=== PATIENT | female | born 2000 | race Caucasian/White ===

== ENCOUNTER 2025-02-16 08:17 | Inpatient (IN) ==
[2025-02-16] MEDS ORDERED: OXYTOCIN 30 UNITS/NSS 30 UNITS/500 ML BAG IV PRN (08:50)
[2025-02-16] MEDS ORDERED: LIDOCAINE 1% LOCAL 20 ML VIAL INFIL PRN (08:50)
--- NOTE | 2025-02-16 08:59 | History & Physical Report ---
Date of Service February 16, 2025 Assessment & Plan (1) Post term over 40 weeks: Plan: Cytotec 50 mcg orally for cervical ripening History of Present Illness Chief Complaint: ruptured membranes Primary Care Provider: Raj Blount, 24 F P0000 at 40.1 weeks term with SROM clear fluid at 0430 this AM. onset of mild contractions noted by patient. GBS is negative. Allergies Allergy/AdvReac Type Severity Reaction Status Date / Time No Known Allergies Allergy Unknown Verified 06/26/23 13:58 Home Medications Medication Instructions Recorded Confirmed Type multivitamin 1 tab PO DAILY 11/10/22 06/26/23 History escitalopram oxalate 5 mg tablet 5 mg PO DAILY #90 tabs 06/26/23 06/26/23 Rx albuterol sulfate 90 mcg/actuation 2 puff inhalation QID PRN 03/08/24 03/08/24 Rx aerosol inhaler (Ventolin HFA) shortness of breath or wheezing #6.7 grams azithromycin 250 mg tablet See Rx Instructions PO .COMPLEX #6 03/08/24 03/08/24 Rx tabs Patient History Medical History Migraine with aura Leg pain, left Family History Other Thyroid disease Denies family history of Ovarian cancer Prostate cancer Myocardial infarction Breast cancer Colorectal cancer Social History Smoking Status: Former smoker Tobacco Type: E-cigarettes / Vaping Age Started Using Tobacco: 17; Second Hand Exposure: Yes; Do You Dip or Chew Tobacco: No; Tobacco Cessation Education Requested by Patient: No Hx Alcohol Use: No Hx Substance Use: No Preferred Language: Uzbek Communication Ability: Effective Sales And Marketing Executive Required: No Beliefs That Will Affect Care: None marital status: Single Current Living Situation: Spouse Current Living Situation Comment: - Samir Stoddard current occupational status: employed 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 How many Children do You have: 0 Other Information That Helps Us Care for You: No Feels Safe at Home: Yes Safety Concerns: Feels Safe At This Time Childhood Exposure to Second-Hand Smoke: Yes Diet: regular caffeine: Yes Dental Care, Regularly: No Physical Activity Frequency: Daily Seatbelt Use: always Sunscreen Use: No Assistive Devices: None OB History 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 History neg Review of Systems All systems reviewed & are unremarkable except as noted in HPI & below Physical Exam Constitutional: WD/WN, vitals as above Eyes: PERRL, conjunctivae normal, anicteric sclerae Respiratory: normal respiratory effort, lungs clear to auscultation Cardiovascular: RRR, no murmur, no edema Gastrointestinal (Abdomen): Inspection/Auscultation: abdomen normal to inspection Musculoskeletal: Extremities: extremities normal to inspection Skin: no rashes, warm and dry Neurologic: patellar DTR's 2+ bilat, sensation intact Psychiatric: A+Ox3, euthymic affect Genitourinary: Manual OB Exam: + cervical dilation fingertip, + cervical effacement 50%, + station high and + amniotic fluid clear OB Exam Monitor Tracing: + external FHT monitor used, + external uterine monitor used and + category I Results & Data Vital Signs (Past 12 Hours) Vital Signs Temp Pulse Resp BP 02/16/25 08:45 96 H 129/87 02/16/25 08:38 36.8 C 96 H 16 129/87 Code Status & VTE Plan VTE Prophylaxis Plan VTE Prophylaxis will be ordered: No Monitoring External Monitor Cat 1
[2025-02-16] MEDS: miSOPROStoL 50 MCG TAB PO ONE (09:12)
[2025-02-16 09:19] LABS: Hematocrit (blood only) 34.4 % (37.0-47.0); Hemoglobin 11.5 g/dl (12.0-16.0); Mean Corpuscular Hemoglobin 29.2 pg (25.0-34.0); Mean Corpuscular Volume 87.3 fL (80.0-100.0); Platelet Count 201 K/uL (130-400); RDW Standard Deviation 42.2 fL (36.4-46.3); Red Blood Count 3.94 M/uL (4.20-5.40); White Blood Count 12.95 K/ul (4.8-10.8)
[2025-02-16] MEDS: LACTATED RINGER'S 1,000 ML IV PRN (12:56)
[2025-02-16] MEDS: BUTORPHANOL TARTRATE 1 MG/ML VIAL IV ONE ×2 (13:20→14:18)
[2025-02-16] MEDS ORDERED: NALBUPHINE HCL INJ 10 MG/ML AMP IV PRN (14:37)
[2025-02-16] MEDS ORDERED: diphenhydrAMINE 50 MG/ML VIAL IV PRN (14:37)
[2025-02-16] MEDS ORDERED: NALOXONE HCL 1 MG in SODIUM CHLORIDE 0.9% 1,000 ML IV PRN (14:37)
[2025-02-16] MEDS ORDERED: SODIUM CHLORIDE 0.9% PF INJ 10 ML VIAL EPI PRN (14:37)
[2025-02-16] MEDS ORDERED: NALOXONE HCL 0.4 MG/1 ML VIAL/CARP IV PRN (14:37)
[2025-02-16] MEDS ORDERED: ROPIVACAINE 0.5% PF 5 MG/ML 20 ML VIAL EPI PRN (14:37)
[2025-02-16] MEDS ORDERED: LIDOCAINE 2% MPF LOCAL 5 ML VIAL EPI PRN (14:37)
--- NOTE | 2025-02-16 14:37 | Anesthesiology Consultation ---
Date of Service February 16, 2025 Assessment & Plan Chart Review Chart Review: Acceptable Risk for Labor Epidural Consults Requested none History Height/Weight Height: 5 ft 1 in Weight: 59.874 kg Allergies Allergy/AdvReac Type Severity Reaction Status Date / Time No Known Allergies Allergy Unknown Verified 06/26/23 13:58 Medications Home Medications Medication Instructions Recorded Confirmed Last Taken multivitamin 1 tab PO DAILY 11/10/22 06/26/23 Unknown Active Medications Generic Name Dose Route Start Last Admin Trade Name Freq PRN Reason Stop Dose Admin Lactated Ringer's 1,000 mls @ 125 mls/hr 02/16/25 08:50 02/16/25 14:09 Lr IV 02/18/25 08:49 999 mls/hr .Q8H PRN Infusion L&D Protocol Protocol Past Family History Family History Other Thyroid disease Denies family history of Ovarian cancer Prostate cancer Myocardial infarction Breast cancer Colorectal cancer Social History Smoking Status: Former smoker Do You Dip or Chew Tobacco: No Hx Alcohol Use: No Hx Substance Use: No Physical Exam Vital Signs Last Vital Signs Temp 36.7 C 02/16/25 13:06 Pulse 87 02/16/25 14:35 Resp 16 02/16/25 11:16 BP 120/63 02/16/25 14:33 Pulse Ox 97 02/16/25 14:35 Testing Laboratory Results 02/16/25 09:03
[2025-02-16] MEDS: LIDOCAINE 2%/EPINEPHRINE 1:200,000 20 ML PF EPI STA (14:59)
[2025-02-16] MEDS: BUPIVACAINE 0.25% PF 30 ML VIAL ONE (14:59)
[2025-02-16] MEDS: SODIUM CHLORIDE 0.9% PF INJ 10 ML VIAL ONE (15:00)
[2025-02-16] MEDS: fentANYL 2 MCG/ML BUPIVacaine 0.125%-NSS 100ML BAG ONE (15:13)
--- NOTE | 2025-02-16 17:13 | Labor Progress Brief Note ---
Date of Service February 16, 2025 Assessment & Plan Admission and Anticipated Discharge Date Admission Date: February 16, 2025 Physical Exam Genitourinary: Manual OB Exam: + cervical dilation 2 cm, + cervical effacement 90% and + station -2 OB Exam Monitor Tracing: + external FHT monitor used, + external uterine monitor used, + category I and + normal FHT variability attempted to rupture forebag with Amni-hook but no fluid obtained after exam Results & Data Vital Signs (Past 12 Hours) Vital Signs Temp Pulse Resp BP Pulse Ox 02/16/25 17:10 91 H 98 02/16/25 17:05 98 H 99 02/16/25 17:00 116 H 16 99 02/16/25 16:55 108 H 99 02/16/25 16:50 90 97 02/16/25 16:48 94 H 125/73 02/16/25 16:45 109 H 98 02/16/25 16:40 112 H 99 02/16/25 16:35 104 H 98 02/16/25 16:33 99 H 139/75 02/16/25 16:30 128 H 16 99 02/16/25 16:25 86 96 02/16/25 16:20 90 95 02/16/25 16:18 113 H 115/58 L 02/16/25 16:15 92 H 95 02/16/25 16:10 89 95 02/16/25 16:05 90 94 02/16/25 16:03 90 122/66 02/16/25 16:00 92 H 95 02/16/25 15:55 83 95 02/16/25 15:50 90 95 02/16/25 15:48 108 H 120/57 L 02/16/25 15:45 89 96 02/16/25 15:40 83 96 02/16/25 15:35 87 96 02/16/25 15:30 86 16 96 02/16/25 15:28 89 115/56 L 02/16/25 15:25 79 96 02/16/25 15:23 90 124/60 02/16/25 15:21 85 18 131/66 02/16/25 15:20 91 H 96 02/16/25 15:19 83 129/59 L 02/16/25 15:18 16 02/16/25 15:18 16 02/16/25 15:17 77 133/60 02/16/25 15:16 18 02/16/25 15:16 18 02/16/25 15:15 97 02/16/25 15:15 86 02/16/25 15:15 80 119/56 L 02/16/25 15:12 36.6 C 82 20 131/72 02/16/25 15:10 98 H 98 02/16/25 15:05 110 H 98 02/16/25 15:03 111 H 134/83 02/16/25 15:00 132 H 97 02/16/25 14:55 124 H 98 02/16/25 14:50 104 H 96 02/16/25 14:48 96 H 131/58 L 02/16/25 14:45 87 96 02/16/25 14:40 91 H 97 02/16/25 14:35 87 97 02/16/25 14:33 94 H 120/63 02/16/25 14:30 114 H 99 02/16/25 14:25 88 97 02/16/25 14:21 77 91 02/16/25 14:20 89 96 02/16/25 13:10 91 H 119/58 L 02/16/25 13:06 36.7 C 02/16/25 11:16 36.6 C 81 16 129/79 02/16/25 09:14 99 H 122/79 02/16/25 08:45 96 H 129/87 02/16/25 08:40 36.8 C 02/16/25 08:38 36.8 C 96 H 16 129/87
[2025-02-16] MEDS: OXYTOCIN 30 UNITS/NSS 30 UNITS/500 ML BAG IV PRN (19:32)
[2025-02-16] MEDS: CALCIUM CARBONATE 500 MG CHEWABLE TAB PO PRN (20:31)
[2025-02-16] MEDS: fentANYL 2 MCG/ML BUPIVacaine 0.125%-NSS 100ML BAG EPI PRN (23:18)
[2025-02-17] MEDS: ONDANSETRON INJ 2 MG/ML 2 ML VIAL IV PRN (02:30)
[2025-02-17] MEDS: BUPIVACAINE 0.25% PF 30 ML VIAL EPI PRN (07:30)
[2025-02-17] MEDS: BUPIVACAINE 0.25% PF 30 ML VIAL EPI STA (09:48)
[2025-02-17] MEDS: LIDOCAINE 2%/EPINEPHRINE 1:200,000 20 ML PF ONE (09:48)
[2025-02-17] MEDS: SODIUM CHLORIDE 0.9% PF INJ 10 ML VIAL EPI STA (09:49)
--- NOTE | 2025-02-17 10:45 | Labor Progress Brief Note ---
Date of Service February 17, 2025 Assessment & Plan Admission and Anticipated Discharge Date Admission Date: February 16, 2025 Physical Exam Genitourinary: Manual OB Exam: + cervical dilation 10 cm, + cervical effacement 100% and + station 0 OB Exam Monitor Tracing: + external FHT monitor used, + external uterine monitor used, + category I and + normal FHT variability Results & Data Vital Signs (Past 12 Hours) Vital Signs Temp Pulse Resp BP Pulse Ox 02/17/25 10:40 117 H 96 02/17/25 10:35 121 H 99 02/17/25 10:33 112 H 107/56 L 02/17/25 10:30 100 H 95 02/17/25 10:25 94 H 95 02/17/25 10:20 110 H 96 02/17/25 10:18 101 H 104/54 L 02/17/25 10:15 100 H 94 02/17/25 10:10 99 H 95 02/17/25 10:05 97 H 95 02/17/25 10:04 104 H 100/55 L 02/17/25 10:00 90 94 02/17/25 09:55 103 H 97 02/17/25 09:50 90 95 02/17/25 09:48 91 H 108/54 L 02/17/25 09:45 97 H 95 02/17/25 09:40 100 H 95 02/17/25 09:35 119 H 97 02/17/25 09:34 98 H 103/51 L 02/17/25 09:30 103 H 97 02/17/25 09:25 113 H 96 02/17/25 09:20 92 H 96 02/17/25 09:18 93 H 97/55 L 02/17/25 09:15 102 H 98 02/17/25 09:10 100 H 97 02/17/25 09:05 101 H 95 02/17/25 09:03 99 H 107/53 L 02/17/25 09:00 102 H 96 02/17/25 08:55 19 02/17/25 08:55 37.1 C 102 H 19 97 02/17/25 08:50 97 02/17/25 08:50 106 H 02/17/25 08:50 113 H 117/66 02/17/25 08:45 106 H 97 02/17/25 08:40 106 H 98 02/17/25 08:35 99 H 96 02/17/25 08:33 114 H 129/64 02/17/25 08:30 94 H 96 02/17/25 08:25 104 H 96 02/17/25 08:20 106 H 97 02/17/25 08:18 96 H 125/65 02/17/25 08:15 107 H 98 02/17/25 08:10 107 H 97 02/17/25 08:05 107 H 97 02/17/25 08:04 103 H 112/61 02/17/25 08:00 112 H 97 02/17/25 07:55 113 H 96 02/17/25 07:50 112 H 98 02/17/25 07:48 111 H 126/66 02/17/25 07:45 108 H 98 02/17/25 07:40 111 H 98 02/17/25 07:35 124 H 97 02/17/25 07:30 124 H 98 02/17/25 07:25 111 H 96 02/17/25 07:20 115 H 98 02/17/25 07:18 36.8 C 129 H 22 132/56 L 02/17/25 07:15 105 H 97 02/17/25 07:10 107 H 95 02/17/25 07:05 120 H 96 02/17/25 07:03 105 H 117/67 02/17/25 07:00 116 H 97 02/17/25 06:55 105 H 94 02/17/25 06:50 126 H 98 02/17/25 06:48 121 H 124/86 02/17/25 06:45 135 H 96 02/17/25 06:40 122 H 97 02/17/25 06:35 139 H 98 02/17/25 06:34 136 H 128/88 02/17/25 06:30 115 H 93 02/17/25 06:25 128 H 99 02/17/25 06:20 98 H 92 02/17/25 06:17 107 H 120/64 02/17/25 06:15 123 H 96 02/17/25 06:10 95 H 95 02/17/25 06:05 111 H 97 02/17/25 06:03 98 H 126/66 02/17/25 06:00 96 H 94 02/17/25 05:55 108 H 95 02/17/25 05:50 121 H 98 02/17/25 05:48 129 H 137/73 02/17/25 05:45 126 H 98 02/17/25 05:40 101 H 95 02/17/25 05:35 97 H 95 02/17/25 05:30 88 93 02/17/25 05:25 120 H 98 02/17/25 05:20 123 H 96 02/17/25 05:18 110 H 119/69 02/17/25 05:15 37.2 C 111 H 16 94 02/17/25 05:10 122 H 97 02/17/25 05:05 105 H 94 02/17/25 05:03 107 H 120/69 02/17/25 05:00 101 H 94 02/17/25 04:55 106 H 94 02/17/25 04:50 107 H 94 02/17/25 04:48 121 H 119/75 02/17/25 04:45 123 H 95 02/17/25 04:40 108 H 94 02/17/25 04:35 116 H 93 02/17/25 04:30 106 H 95 02/17/25 04:25 113 H 95 02/17/25 04:20 113 H 94 02/17/25 04:18 114 H 102/57 L 02/17/25 04:15 111 H 94 02/17/25 04:10 110 H 94 02/17/25 04:05 111 H 94 02/17/25 04:02 114 H 114/58 L 02/17/25 04:00 124 H 96 02/17/25 03:55 118 H 94 02/17/25 03:50 126 H 96 02/17/25 03:47 115 H 109/58 L 02/17/25 03:45 125 H 95 02/17/25 03:40 123 H 96 02/17/25 03:35 138 H 95 02/17/25 03:33 130 H 117/56 L 02/17/25 03:30 121 H 95 02/17/25 03:25 128 H 95 02/17/25 03:20 132 H 95 02/17/25 03:18 121 H 110/58 L 02/17/25 03:15 121 H 96 02/17/25 03:10 124 H 97 02/17/25 03:05 134 H 95 02/17/25 03:02 129 H 101/57 L 02/17/25 03:00 134 H 94 02/17/25 02:55 129 H 94 02/17/25 02:50 125 H 94 02/17/25 02:47 117 H 97/56 L 02/17/25 02:45 112 H 95 02/17/25 02:40 121 H 95 02/17/25 02:35 117 H 94 02/17/25 02:33 37.5 C 120 H 15 109/53 L 02/17/25 02:30 118 H 97 02/17/25 02:25 126 H 95 02/17/25 02:20 134 H 95 02/17/25 02:19 150 H 119/58 L 02/17/25 02:15 135 H 96 02/17/25 02:10 116 H 95 02/17/25 02:05 107 H 96 02/17/25 02:02 114 H 107/60 02/17/25 02:00 110 H 96 02/17/25 01:55 117 H 97 02/17/25 01:50 129 H 98 02/17/25 01:47 109 H 105/58 L 02/17/25 01:45 109 H 96 02/17/25 01:40 109 H 98 02/17/25 01:35 109 H 96 02/17/25 01:33 112 H 102/57 L 02/17/25 01:30 109 H 96 02/17/25 01:25 146 H 98 02/17/25 01:20 103 H 95 02/17/25 01:19 100 H 123/70 02/17/25 01:15 103 H 96 02/17/25 01:10 105 H 96 02/17/25 01:05 115 H 97 02/17/25 01:04 18 02/17/25 01:04 36.7 C 18 02/17/25 01:02 117 H 117/65 02/17/25 01:00 119 H 97 02/17/25 00:55 124 H 99 02/17/25 00:50 120 H 97 02/17/25 00:47 120 H 113/64 02/17/25 00:45 119 H 98 02/17/25 00:40 118 H 99 02/17/25 00:35 128 H 99 02/17/25 00:32 116 H 121/71 07/11/25 00:30 125 H 98 02/17/25 00:25 118 H 99 02/17/25 00:20 127 H 99 02/17/25 00:18 136 H 120/67 02/17/25 00:15 129 H 100 02/17/25 00:10 123 H 99 02/17/25 00:05 113 H 99 02/17/25 00:02 121 H 109/62 02/17/25 00:00 124 H 99 02/16/25 23:55 129 H 98 02/16/25 23:50 122 H 97 02/16/25 23:49 115 H 114/67 02/16/25 23:45 115 H 98 02/16/25 23:40 117 H 97 02/16/25 23:35 112 H 99 02/16/25 23:32 125 H 126/78 02/16/25 23:30 114 H 98 02/16/25 23:25 122 H 98 02/16/25 23:20 125 H 97 02/16/25 23:18 133 H 130/69 02/16/25 23:15 147 H 96 02/16/25 23:10 108 H 95 02/16/25 23:05 110 H 96 02/16/25 23:03 116 H 131/70 02/16/25 23:00 108 H 95 02/16/25 22:55 110 H 97 02/16/25 22:50 109 H 96 02/16/25 22:48 112 H 123/70 02/16/25 22:45 105 H 96
[2025-02-17] MEDS ORDERED: ACETAMINOPHEN 325 MG TAB PO PRN (14:04)
[2025-02-17] MEDS ORDERED: HYDROCORTISONE ACETATE 25 MG SUPP PR PRN (14:04)
[2025-02-17] MEDS ORDERED: OXYTOCIN 30 UNITS/NSS 30 UNITS/500 ML BAG IV PRN (14:04)
[2025-02-17] MEDS ORDERED: DIPHTHER/TETAN/PERTUS Vaccine (Tdap, Adol/Adult) 0.5mL IM ONE (14:04)
--- NOTE | 2025-02-17 14:07 | Delivery Summary ---
Vaginal Delivery Summary Date of Service February 17, 2025 Vaginal Delivery Summary live male LINDA with meconium noted at delivery of head and sucked out. Cord clamped and cut and baby handed to clinical study manager present at [facility]. Apgars pending. Loop of cord obtained for cord gases. Cord blood obtained followed by spontaneous delivery of intact placenta. Placenta sent to pathology for evaluation. No tears. QBL 75 ml. Final sponge and instrument count are correct. Mom stable and baby to nursery for evaluation.
[2025-02-17] MEDS: ACETAMINOPHEN 325 MG TAB PO PRN (14:13)
[2025-02-17 14:37] LABS: Base Excess Cord Venous Blood -7.9 mEq/L (-7.7-1.9); Cord Venous Blood PO2 < 20 mmHg (14.1-43.3); O2 Saturation Cord Venous Bld < 60.0 % (<68)
[2025-02-17] MEDS: IBUPROFEN 600 MG TAB PO PRN (15:08)
[2025-02-17] MEDS: BENZOCAINE 20% SPRY 85 APPLN/85 GM CAN EXT PRN (15:09)
--- NOTE | 2025-02-17 19:53 | Anesthesia Procedure Note ---
Date of Service February 17, 2025 Anesthesia Post Epidural Note Vital Signs Vital Signs: Temp Pulse Resp BP Pulse Ox O2 Del Method 36.9 C 86 16 115/73 95 Room Air 02/17/25 19:02 02/17/25 19:02 02/17/25 19:02 02/17/25 19:02 02/17/25 19:02 02/17/25 19:02 Pain Intensity Bilateral Abdomen: Pain Intensity: 2 Perineal: Pain Intensity: 1 Notes Mental Status: alert / awake / arousable Nausea / Vomiting: adequately controlled Pain: adequately controlled Airway Patency, RR, SpO2: stable & adequate BP & HR: stable & adequate Hydration State: stable & adequate Neuraxial Anesthesia: was administered and sensory block is resolving Anesthetic Complications: no major complications apparent and Pt Satisfied with anesthetic care Epidural: Removed without complications and With tip intact
[2025-02-17] MEDS: DOCUSATE SODIUM 100 MG CAP PO SCH (20:58)
[2025-02-18 06:39] LABS: Hematocrit (blood only) 29.1 % (37.0-47.0); Hemoglobin 9.5 g/dl (12.0-16.0); Mean Corpuscular Hemoglobin 29.4 pg (25.0-34.0); Mean Corpuscular Volume 90.1 fL (80.0-100.0); Platelet Count 177 K/uL (130-400); RDW Standard Deviation 45.4 fL (36.4-46.3); Red Blood Count 3.23 M/uL (4.20-5.40); White Blood Count 16.41 K/ul (4.8-10.8)
[2025-02-18] MEDS: FERROUS SULFATE 325 MG TAB PO SCH (08:41)
[2025-02-18] MEDS: PRENATAL VITAMIN 1 TAB PO SCH (08:41)
[2025-02-18] MEDS: MULTIVITAMIN TAB PO SCH (08:42)
--- NOTE | 2025-02-18 09:24 | Obstetrical Progress Note ---
Date of Service February 18, 2025 Assessment & Plan Admission and Anticipated Discharge Date Admission Date: February 16, 2025 Subjective Patient is seen and examined. She feels well, no complaints. Ambulating without dizziness Voiding without difficulty Tolerating regular diet with out N&V Bleeding is minimal No fever/ chills/ CP/ SOB/ N&V/ Leg pain Breast feeding without problems Vital Signs Temp Pulse Resp BP Pulse Ox O2 Del Method 02/18/25 07: 36.9 C 98 H 18 121/82 98 Room Air 02/18/25 03:34 36.6 C 85 16 121/81 97 Room Air 02/17/25 22:44 36.7 C 89 16 131/80 97 Room Air Lab Results 02/16/25 02/17/25 02/18/25 Range/Units 09:03 13:32 06:16 WBC 12.95 H 16.41 H (4.8-10.8) K/ul RBC 3.94 L 3.23 L (4.20-5.40) M/uL Hgb 11.5 L 9.5 L (12.0-16.0) g/dl Hct 34.4 L 29.1 L (37.0-47.0) % MCV 87.3 90.1 (80.0-100.0) fL MCH 29.2 29.4 (25.0-34.0) pg MCHC 33.4 32.6 (32.0-36.0) g/dL RDW Std Deviation 42.2 45.4 (36.4-46.3) fL RDW Coeff of Eliana 13.4 13.8 (11.5-14.5) % Plt Count 201 177 (130-400) K/uL MPV 10.9 10.8 (9.4-12.4) fL Cord VBG pH 7.26 (7.20-7.44) Cord VBG pCO2 42 (30.4-57.2) mmHg Cord VBG pO2 < 20 (14.1-43.3) mmHg Cord VBG HCO3 19 (18.4-26.8) mmol/L Cord VBG Base Excess -7.9 L (-7.7-1.9) mEq/L Cord VBG O2 Sat < 60.0 (<68) % Blood Gas Comments CALIXTO Treponema pallidum Ab Negative (Negative) Blood Type B Negative Antibody Screen NEGATIVE Screen Negative (Negative) PE: General: Alert, orientedx3, NAD Abd: soft, NT, fundus firm, below Umbilicus Perineum intact, Lochia rubra minimal Ext; NT, no edema AP: 24 yo s/p , ppd# 1 VSS Afebrile doing well Continue routine care All questions were answered D/C home tomorrow Results & Data Vital Signs (Past 12 Hours) Vital Signs Temp Pulse Resp BP Pulse Ox O2 Del Method 02/18/25 07:25 36.9 C 98 H 18 121/82 98 Room Air 02/18/25 03:34 36.6 C 85 16 121/81 97 Room Air 02/17/25 22:44 36.7 C 89 16 131/80 97 Room Air
[2025-02-18 12:35] VITALS: RESP 16
[2025-02-19 06:42] LABS: Hematocrit (blood only) 28.7 % (37.0-47.0); Hemoglobin 9.2 g/dl (12.0-16.0); Immature Granulocytes # (auto) 0.10 K/uL (0.01-0.20); Immature Granulocytes % (auto) 0.9 %; Mean Corpuscular Hemoglobin 29.1 pg (25.0-34.0); Mean Corpuscular Volume 90.8 fL (80.0-100.0); Platelet Count 179 K/uL (130-400); RDW Standard Deviation 45.6 fL (36.4-46.3); Red Blood Count 3.16 M/uL (4.20-5.40); White Blood Count 11.48 K/ul (4.8-10.8)
[2025-02-19 07:51] VITALS: BP 119/81; PULSE 90; TEMP 97.7; O2SAT 99
--- NOTE | 2025-02-19 09:53 | Obstetrical Progress Note ---
Date of Service February 19, 2025 Assessment & Plan (1) Post term over 40 weeks: discharged to home Subjective Ambulation: ambulating normally Voiding: no voiding problems Passing Gas:: Yes Diet Tolerance:: regular diet Lochia:: Small Feeding Type:: bottle feeding Current Pain Level(1-10): 0 Physical Exam Constitutional WD/WN, vitals as above Gastrointestinal (Abdomen) Inspection/Auscultation: abdomen normal to inspection abdomen soft and non-tender fundus firm below U Musculoskeletal Extremities: extremities normal to inspection Skin no rashes, warm and dry Neurologic patellar DTR's 2+ bilat, sensation intact Psychiatric A+Ox3, euthymic affect Results & Data Vital Signs (Past 12 Hours) Vital Signs Temp Pulse Resp BP Pulse Ox O2 Del Method 02/19/25 07:22 Room Air 02/19/25 07:22 36.5 C 90 16 119/81 99 Room Air 02/18/25 23:03 36.9 C 88 16 118/78 97 Room Air Laboratory Results Laboratory Results - last 72 hr 02/16/25 02/17/25 02/18/25 09:03 13:32 06:16 WBC 16.41 H RBC 3.23 L Hgb 9.5 L Hct 29.1 L MCV 90.1 MCH 29.4 MCHC 32.6 RDW Std Deviation 45.4 RDW Coeff of Eliana 13.8 Plt Count 177 MPV 10.8 Immature Gran % (Auto) Neut % (Auto) Lymph % (Auto) [place] % (Auto) Eos % (Auto) Baso % (Auto) Neut # (Auto) Lymph # (Auto) [place] # (Auto) Eos # (Auto) Baso # (Auto) Immature Gran # (Auto) Cord VBG pH 7.26 Cord VBG pCO2 42 Cord VBG pO2 < 20 Cord VBG HCO3 19 Cord VBG Base Excess -7.9 L Cord VBG O2 Sat < 60.0 Blood Gas Comments [place]TO Treponema pallidum Ab Negative Blood Type B Negative Antibody Screen NEGATIVE Screen Negative 02/19/25 06:09 WBC 11.48 H RBC 3.16 L Hgb 9.2 L Hct 28.7 L MCV 90.8 MCH 29.1 MCHC 32.1 RDW Std Deviation 45.6 RDW Coeff of Eliana 13.8 Plt Count 179 MPV 10.8 Immature Gran % (Auto) 0.9 Neut % (Auto) 80.9 Lymph % (Auto) 10.5 [place] % (Auto) 5.7 Eos % (Auto) 1.7 Baso % (Auto) 0.3 Neut # (Auto) 9.29 H Lymph # (Auto) 1.21 [place] # (Auto) 0.65 H Eos # (Auto) 0.20 Baso # (Auto) 0.03 Immature Gran # (Auto) 0.10 Cord VBG pH Cord VBG pCO2 Cord VBG pO2 Cord VBG HCO3 Cord VBG Base Excess Cord VBG O2 Sat Blood Gas Comments Treponema pallidum Ab Blood Type Antibody Screen Screen
== END 2025-02-19 14:32 | disposition home health service (06) | DRG 807 ==
LOC: OPB 08:17 → 4S1 08:20 → 4E2 02-17 18:50